=== PATIENT | male | born 1980 | race American Indian/Alaskan Native ===

== ENCOUNTER 2017-11-19 11:35 | Emergency (ER) | payer MEDICAID ==
[2017-11-19 11:43] VITALS: BP 144/86
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
[2017-11-19 12:31] LABS: CHLORIDE,CL 96 mmol/L (101-111); SODIUM,NA 134 mmol/L (135-145)
== END 2017-11-19 13:54 ==
LOC: DL.ED 11:35
DX: F10.20 Alcohol dependence, uncomplicated (principal); G40.909 Epilepsy, unspecified, not intractable, without status epilepticus; F17.210 Nicotine dependence, cigarettes, uncomplicated; Z88.0 Allergy status to penicillin
CPT/HCPCS: 36415; 80053; 80305; 81001; 85025; 99283; G0480

== ENCOUNTER 2019-04-21 03:41 | Emergency (ER) | payer MEDICAID ==
[~2019-04-21 03:41] MED LIST: GI Cocktail Oral Solution 30 ML PO ONE
[2019-04-21 03:42] VITALS: BP 129/95; PULSE 73
--- NOTE | 2019-04-21 03:42 | EDM.PDOC ---
ED HPI GENERAL MEDICAL PROBLEM - General Chief Complaint: Chest Pain Stated Complaint: AMBULANCE Time Seen by Provider: 04/21/19 03:40 Source of Information: Reports: Patient History Limitations: Reports: No Limitations - History of Present Illness INITIAL COMMENTS - FREE TEXT/NARRATIVE: woke up with mid chest pain pointing to sternum to mid abd. ate gomez bed for dinner. Upper Abdomen Pain Score (Numeric/FACES): 8 - Related Data Allergies Allergy/AdvReac Type Severity Reaction Status Date / Time Penicillins Allergy Cannot Verified 04/21/19 03:56 Remember Home Meds: Home Meds . [No Known Home Meds] 08/12/15 [History] Past Medical History - Past Health History Medical/Surgical History: Denies Medical/Surgical History Gastrointestinal History: Reports: None Musculoskeletal History: Reports: Other (See Below) Other Musculoskeletal History: cerbral palsy Neurological History: Reports: Seizure Endocrine/Metabolic History: Reports: [place]'s Disease - Past Surgical History GI Surgical History: Reports: Appendectomy Neurological Surgical History: Reports: None Musculoskeletal Surgical History: Reports: Other (See Below) Social & Family History - Family History Family Medical History: Noncontributory - Caffeine Use Caffeine Use: Reports: Coffee, Soda ED ROS GENERAL - Review of Systems Review Of Systems: Comprehensive ROS is negative, except as noted in HPI. ED EXAM, GENERAL - Physical Exam Exam: See Below Exam Limited By: No Limitations General Appearance: Alert, WD/WN, Anxious, Mild Distress Ears: Hearing Grossly Normal Throat/Mouth: Normal Voice, No Airway Compromise Head: Atraumatic Neck: Non-Tender, Full Range of Motion Respiratory/Chest: No Respiratory Distress Cardiovascular: Regular Rate, Rhythm GI/Abdominal: Tender, Other (epiG splinting). No: Distended, Guarding, Rigid, Rebound Neurological: Alert, Oriented, Normal Cognition, No Motor/Sensory Deficits Psychiatric: Anxious Skin Exam: Warm, Dry, Normal Color Lymphatic: No Adenopathy Course - Vital Signs Last Recorded V/S: Last Vital Signs Temp 36.1 C 04/21/19 03:33 Pulse 73 04/21/19 03:33 Resp 13 04/21/19 03:33 BP 129/95 H 04/21/19 03:33 Pulse Ox 100 04/21/19 03:33 - Orders/Labs/Meds Orders: Active Orders 24 hr Category Date Time Status EKG 12 Lead [EKG Documentation Completion] [RC] STAT Care 04/21/19 03:39 Active Labs: Laboratory Tests 04/21/19 04/21/19 Range/Units 03:49 03:49 WBC 9.7 (5.0-10.0) 10^3/uL RBC 5.21 (4.6-6.2) 10^6/uL Hgb 17.3 (14.0-18.0) g/dL Hct 51.9 (40.0-54.0) % MCV 99.6 (80-100) fL MCH 33.2 (27.0-34.0) pg MCHC 33.3 (33.0-35.0) g/dL Plt Count 260 D (150-450) 10^3/uL Neut % (Auto) 59.1 (42.2-75.2) % Lymph % (Auto) 30.6 (20.5-50.1) % [place] % (Auto) 5.6 (2-8) % Eos % (Auto) 4.3 H (1.0-3.0) % Baso % (Auto) 0.4 (0.0-1.0) % Sodium 137 (135-145) mmol/L Potassium 3.8 (3.6-5.0) mmol/L Chloride 103 (101-111) mmol/L Carbon Dioxide 27.0 (21.0-31.0) mmol/L Anion Gap 10.8 BUN 12 (7-18) mg/dL Creatinine 0.8 (0.6-1.3) mg/dL Est Cr Clr Drug Dosing 134.72 mL/min Estimated GFR (MDRD) > 60 BUN/Creatinine Ratio 15.00 Glucose 118 H (74-105) mg/dL Calcium 8.9 (8.4-10.2) mg/dl Total Bilirubin 0.9 (0.2-1.0) mg/dL AST 60 H (10-42) IU/L ALT 25 (10-60) IU/L Alkaline Phosphatase 74 (42-121) IU/L Troponin I < 0.02 (0.00-0.02) ng/ml Total Protein 7.6 (6.7-8.2) g/dl Albumin 4.0 (3.2-5.5) g/dl Globulin 3.6 Albumin/Globulin Ratio 1.11 Meds: Medications Discontinued Medications Generic Name Dose Route Start Last Admin Trade Name Beto PRN Reason Stop Dose Admin Al Hydroxide/Mg Hydroxide 30 ml 04/21/19 03:38 04/21/19 03:48 Gi Cocktail PO 04/21/19 03:39 30 ml ONETIME ONE Administration - Re-Assessments/Exams Free Text/Narrative Re-Assessment/Exam: 04/21/19 03:56 s/p GI cocktail = much better now. 04/21/19 04:34 results discussed with pt who remains pain free. Departure - Departure Time of Disposition: 04:34 Disposition: Home, Self-Care 01 Condition: Good Clinical Impression: Gastroesophageal reflux disease Qualifiers: Esophagitis presence: with esophagitis Qualified Code(s): K21.0 - Gastro- esophageal reflux disease with esophagitis Instructions: Food Choices for Gastroesophageal Reflux Disease, Adult Forms: ED Department Discharge Additional Instructions: 1) avoid spicy foods 2) follow up at clinic Sepsis Event Note - Focused Exam Vital Signs: Vital Signs Temp Pulse Resp BP Pulse Ox 04/21/19 03:33 36.1 C 73 13 129/95 H 100 Date Exam was Performed: 04/21/19 Time Exam was Performed: 04:34 - My Orders Last 24 Hours: My Active Orders 04/21/19 03:39 EKG 12 Lead [EKG Documentation Completion] [RC] STAT - Assessment/Plan Last 24 Hours: My Active Orders 04/21/19 03:39 EKG 12 Lead [EKG Documentation Completion] [RC] STAT
[2019-04-21 04:15] LABS: ANION GAP 10.8; CHLORIDE,CL 103 mmol/L (101-111); SODIUM,NA 137 mmol/L (135-145)
== END 2019-04-21 04:45 | disposition home or self-care (01) ==
LOC: DL.ED 03:41
DX: K21.0 Gastro-esophageal reflux disease with esophagitis (principal); Z88.0 Allergy status to penicillin
CPT/HCPCS: 36415; 80053; 84484; 85025; 93005; 99285; A9270

== ENCOUNTER 2019-06-02 17:58 | Emergency (ER) | payer MEDICAID ==
[2019-06-02] MEDS ORDERED: Iopamidol 612 MG/ML 100 ML Bottle IVPUSH ONE (18:01)
[2019-06-02] MEDS ORDERED: Sodium Chloride 0.9% 10 ML Syringe FLUSH PRN (18:01)
[2019-06-02] MEDS ORDERED: Diphtheria,Pertussis(Acell),Tetanus Vaccine 0.5 ML SDV IM ONE (18:05)
[2019-06-02 18:21] LABS: ANION GAP 15.4; CHLORIDE,CL 101 mmol/L (101-111); SODIUM,NA 140 mmol/L (135-145)
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
[2019-06-02 18:24] LABS: PTT,PARTIAL THROMBOPLSTIN TIME 26.6 SEC (22.0-34.0)
[2019-06-02] MEDS ORDERED: Lactated Ringers 1,000 ML IV ONE (18:31)
[2019-06-02] MEDS ORDERED: Ondansetron 4 MG/2 ML SDV IV ONE (18:31)
[2019-06-02] MEDS ORDERED: fentaNYL 100 MCG/2 ML SDV IVPUSH ONE (18:31)
[2019-06-02] MEDS ORDERED: MVI, Adult with Vitamin K 10 ML, Folic Acid 1 MG, Thiamine 100 MG in Lactated Ringers 1... IV ONE ×4 (20:21)
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
== END 2019-06-02 21:19 | disposition home or self-care (01) ==
LOC: DL.ED 17:58
DX: S01.112A Laceration without foreign body of left eyelid and periocular area, initial encounter (principal); S05.12XA Contusion of eyeball and orbital tissues, left eye, initial encounter; F10.929 Alcohol use, unspecified with intoxication, unspecified; Y90.8 Blood alcohol level of 240 mg/100 ml or more; Z88.0 Allergy status to penicillin; Z23 Encounter for immunization; X99.1XXA Assault by knife, initial encounter
CPT/HCPCS: 36415; 70450; 70486; 72125; 80053; 80305; 80307; 81003; 85025; 85610; 85730; 90471; 90715; 96361; 96365; 96375; 99284; J2405; J3010; J3411; J7120; 70487; J3490

== ENCOUNTER 2021-02-23 16:26 | Inpatient (IN) | payer MEDICAID ==
--- NOTE | 2021-02-23 15:36 | EDM.PDOC ---
ED HPI GENERAL MEDICAL PROBLEM - General Chief Complaint: Skin Complaint Stated Complaint: AMBULANCE Time Seen by Provider: 02/23/21 15:15 Source of Information: Reports: Patient History Limitations: Reports: No Limitations - History of Present Illness INITIAL COMMENTS - FREE TEXT/NARRATIVE: This 40 yo male patient was brought to the ED by [facility] due to an infection in his left 2nd distal finger and left lower extremity. The patient believes the redness and swelling started at least 2 days ago and has been getting worse. The patient has not had either area evaluated and has not had any antibiotics. Onset: Unknown/Unsure Duration: Day(s):, Constant Location: Reports: Upper Extremity, Left, Lower Extremity, Left Quality: Reports: Ache, Dull Severity: Moderate Improves with: Reports: None Worsens with: Reports: None Context: Reports: Other Associated Symptoms: Reports: No Other Symptoms Right Leg Pain Score (Numeric/FACES): 10 - Related Data Allergies Allergy/AdvReac Type Severity Reaction Status Date / Time Penicillins Allergy Cannot Verified 02/23/21 15:11 Remember Home Meds: Home Meds . 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 Hematologic History: Reports: None Immunologic History: Reports: None Oncologic (Cancer) History: Reports: None Dermatologic History: Reports: None - Infectious Disease History Infectious Disease History: Reports: Chicken Pox - Past Surgical History Head Surgeries/Procedures: Reports: None HEENT Surgical History: Reports: None Cardiovascular Surgical History: Reports: None Respiratory Surgical History: Reports: None GI Surgical History: Reports: Appendectomy Male Surgical History: Reports: None Endocrine Surgical History: Reports: None Neurological Surgical History: Reports: None Musculoskeletal Surgical History: Reports: Other (See Below) Other Musculoskeletal Surgeries/Procedures:: RIGHT arm surgery R/T Cerebral Palsey Oncologic Surgical History: Reports: None Social & Family History - Family History Family Medical History: No Pertinent Family History - Tobacco Use Tobacco Use Status *Q: Current Every Day Tobacco User Years of Tobacco use: 24 Packs/Tins Daily: 1 - Caffeine Use Caffeine Use: Reports: Soda - Living Situation & Occupation Living situation: Reports: Occupation: Unemployed ED ROS GENERAL - Review of Systems Review Of Systems: Comprehensive ROS is negative, except as noted in HPI. ED EXAM, SKIN/RASH Exam: See Below Exam Limited By: No Limitations General Appearance: Alert, WD/WN, Moderate Distress Eye Exam: Bilateral Eye: EOMI, Normal Inspection, PERRL Ears: Normal External Exam, Normal Canal, Hearing Grossly Normal, Normal TMs Nose: Normal Inspection, Normal Mucosa, No Blood Throat/Mouth: Normal Inspection, Normal Lips, Normal Teeth, Normal Gums, Normal Oropharynx, Normal Voice, No Airway Compromise Head: Atraumatic, Normocephalic Neck: Normal Inspection, Supple, Non-Tender, Full Range of Motion Respiratory/Chest: No Respiratory Distress, Lungs Clear, Normal Breath Sounds, No Accessory Muscle Use, Chest Non-Tender Cardiovascular: Normal Peripheral Pulses, Regular Rate, Rhythm, No Edema, No Gallop, No JVD, No Murmur, No Rub GI/Abdominal: Normal Bowel Sounds, Soft, Non-Tender, No Organomegaly, No Distention, No Abnormal Bruit, No Mass (Male) Exam: Deferred Rectal (Males) Exam: Deferred Back Exam: Normal Inspection, Full Range of Motion, NT Extremities: Arm Pain (left distal 2nd finger erythematous), Leg Pain (erythematous) Neurological: Alert, Oriented, CN II-XII Intact, Normal Cognition, Normal Gait, Normal Reflexes, No Motor/Sensory Deficits Psychiatric: Normal Affect, Normal Mood Location, Skin: Upper Extremity, Left, Lower Extremity, Left Characteristics: Erythematous Associated features: Warmth, Tenderness, Swelling, Inflammation Lymphatic: No Adenopathy Course - Vital Signs Last Recorded V/S: Last Vital Signs Temp 99.3 F 02/23/21 14:55 Pulse 88 02/23/21 14:55 Resp 14 02/23/21 14:55 BP 133/89 02/23/21 14:55 Pulse Ox 97 02/23/21 14:55 - Orders/Labs/Meds Orders: Active Orders 24 hr Category Date Time Status Admission Diagnosis [ADT] Urgent ADT 02/23/21 16:50 Ordered Admission Status [Patient Status] [ADT] Urgent ADT 02/23/21 16:50 Ordered CORONAVIRUS COVID-19 RAPID [MOLEC] Stat Lab 02/23/21 16:48 Received CULTURE BLOOD [BC] Stat Lab 02/23/21 15:28 Ordered CULTURE BLOOD [BC] Stat Lab 02/23/21 15:28 Ordered Vancomycin 1.25 gm Med 02/23/21 16:00 Ordered Sodium Chloride 0.9% [Normal Saline AdvBag] 250 ml IV ONETIME Blood Culture x2 Reflex Set [OM.PC] Stat Oth 02/23/21 15:28 Ordered Medication Orders Vancomycin HCl 1.25 gm/ Sodium (Chloride) 250 mls @ 167 mls/hr IV ONETIME ONE Stop: 02/23/21 17:29 Last Admin: 02/23/21 16:16 Dose: 167 mls/hr Documented by: FAVIAN Labs: Laboratory Tests 02/23/21 02/23/21 02/23/21 Range/Units 15:42 15:42 15:42 WBC 10.3 H (5.0-10.0) 10^3/uL RBC 4.65 (4.6-6.2) 10^6/uL Hgb 15.6 D (14.0-18.0) g/dL Hct 46.7 (40.0-54.0) % MCV 100.4 H (80-100) fL MCH 33.5 (27.0-34.0) pg MCHC 33.4 (33.0-35.0) g/dL Plt Count 167 D (150-450) 10^3/uL Neut % (Auto) 84.2 H (42.2-75.2) % Lymph % (Auto) 5.8 L (20.5-50.1) % [place] % (Auto) 9.5 H (2-8) % Eos % (Auto) 0.3 L (1.0-3.0) % Baso % (Auto) 0.2 (0.0-1.0) % Sodium 133 L (136-145) mmol/L Potassium 3.4 L (3.5-5.1) mmol/L Chloride 96 L (98-107) mmol/L Carbon Dioxide 27 (21-32) mmol/L Anion Gap 13.4 H (7-13) mEq/L BUN 10 (7-18) mg/dL Creatinine 0.81 (0.70-1.30) mg/dL Est Cr Clr Drug Dosing 114.94 mL/min Estimated GFR (MDRD) > 60 BUN/Creatinine Ratio 12.3 (No establ ref range) Glucose 100 H (70-99) mg/dL Lactic Acid 1.6 (0.4-2.0) mmol/L Calcium 9.3 (8.5-10.1) mg/dL Total Bilirubin 1.6 H (0.2-1.0) mg/dL AST 18 (15-37) U/L ALT 29 (16-63) U/L Alkaline Phosphatase 86 (46-116) U/L Total Protein 8.1 (6.4-8.2) g/dL Albumin 3.0 L (3.4-5.0) g/dL Globulin 5.1 Albumin/Globulin Ratio 0.59 Meds: Medications Generic Name Dose Route Start Last Admin Trade Name Freq PRN Reason Stop Dose Admin Vancomycin HCl 1.25 gm/ Sodium 250 mls @ 167 mls/hr 02/23/21 16:00 02/23/21 16:16 Chloride IV 02/23/21 17:29 167 mls/hr ONETIME ONE Administration Departure - Departure Time of Disposition: 16:55 Disposition: Admitted As Inpatient 64 Condition: Fair Clinical Impression: Cellulitis Qualifiers: Site of cellulitis: other site Qualified Code(s): L03.818 - Cellulitis of other sites - Discharge Information *PRESCRIPTION DRUG MONITORING PROGRAM REVIEWED*: Not Applicable *COPY OF PRESCRIPTION DRUG MONITORING REPORT IN PATIENT [place]: Not Applicable Instructions: Cellulitis, Adult, Yder-le-Vrlh Forms: ED Department Discharge Care Plan Goals: Discussed the patient's history, examination, x-ray, lab results and treatments with Dr. Tarango. Dr. Tarango accepted the patient for continued evaluation and management as an inpatient at [facility] in [place]. Sepsis Event Note (ED) - Focused Exam Vital Signs: Vital Signs Temp Pulse Resp BP Pulse Ox 02/23/21 14:55 99.3 F 88 14 133/89 97 - My Orders Last 24 Hours: My Active Orders 02/23/21 15:28 CULTURE BLOOD [BC] Stat CULTURE BLOOD [BC] Stat Blood Culture x2 Reflex Set [OM.PC] Stat 02/23/21 16:00 Vancomycin 1.25 gm Sodium Chloride 0.9% [Normal Saline AdvBag] 250 ml IV ONETIME 02/23/21 16:48 CORONAVIRUS COVID-19 RAPID [MOLEC] Stat 02/23/21 16:50 Admission Diagnosis [ADT] Urgent Admission Status [Patient Status] [ADT] Urgent - Assessment/Plan Last 24 Hours: My Active Orders 02/23/21 15:28 CULTURE BLOOD [BC] Stat CULTURE BLOOD [BC] Stat Blood Culture x2 Reflex Set [OM.PC] Stat 02/23/21 16:00 Vancomycin 1.25 gm Sodium Chloride 0.9% [Normal Saline AdvBag] 250 ml IV ONETIME 02/23/21 16:48 CORONAVIRUS COVID-19 RAPID [MOLEC] Stat 02/23/21 16:50 Admission Diagnosis [ADT] Urgent Admission Status [Patient Status] [ADT] Urgent
[2021-02-23 16:14] LABS: ANION GAP 13.4 mEq/L (7-13); CHLORIDE,CL 96 mmol/L (98-107); SODIUM,NA 133 mmol/L (136-145)
--- NOTE | 2021-02-23 16:19 | CR ---
PROCEDURE INFORMATION: Exam: XR Left Finger(s) Exam date and time: 02/23/2021 3:34 PM Age: 40 years old Clinical indication: Other: Left 2nd distal finger swelling and pain TECHNIQUE: Imaging protocol: XR Left fingers. Views: Minimum 2 views. COMPARISON: No relevant prior studies available. FINDINGS: Bones/joints: Comminuted fracture/possible erosive changes at the tuft of the index finger distal phalanx. No other acutely displaced fractures are identified. There is no evidence of joint dislocation. Soft tissues: Swelling at the tip of the index finger with underlying nail injury. Lacerations are also present. IMPRESSION: 1. Fracture at the tuft of the index finger distal phalanx. In the absence of acute trauma, findings could also be related to destructive/erosive osseous changes in which osteomyelitis would fall within the differential diagnosis. 2. Swelling and lacerations at the tip of the index finger.
[2021-02-23] MEDS ORDERED: Ibuprofen 400 MG Tab PO PRN (18:00)
[2021-02-23] MEDS ORDERED: Acetaminophen/HYDROcodone 325-10 MG Tab PO PRN (18:00)
[2021-02-23] MEDS ORDERED: Docusate Sodium 100 MG Cap PO PRN (18:00)
[2021-02-23] MEDS ORDERED: Levofloxacin 500 MG Tab PO SCH (18:00)
[2021-02-23] MEDS ORDERED: Sodium Chloride 0.9% 10 ML Syringe FLUSH PRN (18:00)
[2021-02-23] MEDS ORDERED: Ondansetron 4 MG/2 ML SDV IVPUSH PRN (18:00)
[2021-02-23] MEDS ORDERED: Potassium Chloride 10 MEQ Tab.ER PO ONE ×2 (18:03→20:30)
--- NOTE | 2021-02-23 18:07 | PCM.HP ---
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 Hematologic History: Reports: None Immunologic History: Reports: None Oncologic (Cancer) History: Reports: None Dermatologic History: Reports: None - Infectious Disease History Infectious Disease History: Reports: Chicken Pox - Past Surgical History Head Surgeries/Procedures: Reports: None HEENT Surgical History: Reports: None Cardiovascular Surgical History: Reports: None Respiratory Surgical History: Reports: None GI Surgical History: Reports: Appendectomy Male Surgical History: Reports: None Endocrine Surgical History: Reports: None Neurological Surgical History: Reports: None Musculoskeletal Surgical History: Reports: Other (See Below) Other Musculoskeletal Surgeries/Procedures:: RIGHT arm surgery R/T Cerebral Palsey Oncologic Surgical History: Reports: None Social & Family History - Family History Family Medical History: No Pertinent Family History - Tobacco Use Tobacco Use Status *Q: Current Every Day Tobacco User Years of Tobacco use: 24 Packs/Tins Daily: 1 - Caffeine Use Caffeine Use: Reports: Coffee, Soda - Alcohol Use Days Per Week of Alcohol Use: 2 - Living Situation & Occupation Living situation: Reports: Occupation: Unemployed H&P Review of Systems - Review of Systems: Review Of Systems: See Below General: Reports: Fever (subjective), Chills, Malaise Pulmonary: Denies: Shortness of Breath Cardiovascular: Denies: Chest Pain Gastrointestinal: Denies: Abdominal Pain Genitourinary: Denies: Dysuria Skin: Reports: Other (left index finger swelling, cut; left barger redness) Psychiatric: Denies: Confusion Exam - Exam Exam: See Below - Vital Signs Vital Signs: Last Vital Signs Temp 99.3 F 02/23/21 14:55 Pulse 88 02/23/21 14:55 Resp 14 02/23/21 14:55 BP 133/89 02/23/21 14:55 Pulse Ox 97 02/23/21 14:55 Weight: 180 lb - Exam Quality Assessment: No: Supplemental Oxygen General: Alert, Oriented Neck: Supple Lungs: Clear to Auscultation, Normal Respiratory Effort Cardiovascular: Regular Rate, Regular Rhythm GI/Abdominal Exam: Normal Bowel Sounds, Soft, Non-Tender Extremities: Other (left barger with erythema, swelling, redness; left index finger with deep cut, swelling) Neuro Extensive - Mental Status: Alert, Oriented x3 Neuro Extensive - Motor, Sensory, Reflexes: Other (r. UE paralysis) - Patient Data Lab Results Last 24 hrs: Laboratory Results - last 24 hr 02/23/21 02/23/21 02/23/21 Range/Units 15:42 15:42 15:42 WBC 10.3 H (5.0-10.0) 10^3/uL RBC 4.65 (4.6-6.2) 10^6/uL Hgb 15.6 D (14.0-18.0) g/dL Hct 46.7 (40.0-54.0) % MCV 100.4 H (80-100) fL MCH 33.5 (27.0-34.0) pg MCHC 33.4 (33.0-35.0) g/dL Plt Count 167 D (150-450) 10^3/uL Neut % (Auto) 84.2 H (42.2-75.2) % Lymph % (Auto) 5.8 L (20.5-50.1) % [place] % (Auto) 9.5 H (2-8) % Eos % (Auto) 0.3 L (1.0-3.0) % Baso % (Auto) 0.2 (0.0-1.0) % Sodium 133 L (136-145) mmol/L Potassium 3.4 L (3.5-5.1) mmol/L Chloride 96 L (98-107) mmol/L Carbon Dioxide 27 (21-32) mmol/L Anion Gap 13.4 H (7-13) mEq/L BUN 10 (7-18) mg/dL Creatinine 0.81 (0.70-1.30) mg/dL Est Cr Clr Drug Dosing 114.94 mL/min Estimated GFR (MDRD) > 60 BUN/Creatinine Ratio 12.3 (No establ ref range) Glucose 100 H (70-99) mg/dL Lactic Acid 1.6 (0.4-2.0) mmol/L Calcium 9.3 (8.5-10.1) mg/dL Total Bilirubin 1.6 H (0.2-1.0) mg/dL AST 18 (15-37) U/L ALT 29 (16-63) U/L Alkaline Phosphatase 86 (46-116) U/L Total Protein 8.1 (6.4-8.2) g/dL Albumin 3.0 L (3.4-5.0) g/dL Globulin 5.1 Albumin/Globulin Ratio 0.59 SARS CoV-2 RNA Rapid ANDRES (NEGATIVE) 02/23/21 Range/Units 16:48 WBC (5.0-10.0) 10^3/uL RBC (4.6-6.2) 10^6/uL Hgb (14.0-18.0) g/dL Hct (40.0-54.0) % MCV (80-100) fL MCH (27.0-34.0) pg MCHC (33.0-35.0) g/dL Plt Count (150-450) 10^3/uL Neut % (Auto) (42.2-75.2) % Lymph % (Auto) (20.5-50.1) % [place] % (Auto) (2-8) % Eos % (Auto) (1.0-3.0) % Baso % (Auto) (0.0-1.0) % Sodium (136-145) mmol/L Potassium (3.5-5.1) mmol/L Chloride (98-107) mmol/L Carbon Dioxide (21-32) mmol/L Anion Gap (7-13) mEq/L BUN (7-18) mg/dL Creatinine (0.70-1.30) mg/dL Est Cr Clr Drug Dosing mL/min Estimated GFR (MDRD) BUN/Creatinine Ratio (No establ ref range) Glucose (70-99) mg/dL Lactic Acid (0.4-2.0) mmol/L Calcium (8.5-10.1) mg/dL Total Bilirubin (0.2-1.0) mg/dL AST (15-37) U/L ALT (16-63) U/L Alkaline Phosphatase (46-116) U/L Total Protein (6.4-8.2) g/dL Albumin (3.4-5.0) g/dL Globulin Albumin/Globulin Ratio SARS CoV-2 RNA Rapid ANDRES Negative (NEGATIVE) Result Diagrams: 02/23/21 15:42 02/23/21 15:42 - Problem List (1) Cellulitis SNOMED Code(s): 499031047 ICD Code: L03.90 - CELLULITIS, UNSPECIFIED Status: Acute Current Visit: No Qualifiers: Site of cellulitis: other site Qualified Code(s): L03.818 - Cellulitis of other sites Problem List Initiated/Reviewed/Updated: Yes Orders Last 24hrs: Active Orders 24 hr Category Date Time Status Admission Diagnosis [ADT] Urgent ADT 02/23/21 16:50 Ordered Admission Status [Patient Status] [ADT] Urgent ADT 02/23/21 16:50 Active Oxygen Therapy [RC] PRN Care 02/23/21 18:00 Ordered Peripheral IV Care [RC] . DIRECTED Care 02/23/21 18:01 Ordered Up With Assistance [RC] ASDIRECTED Care 02/23/21 18:00 Ordered VTE/DVT Education [RC] PER UNIT ROUTINE Care 02/23/21 18:00 Ordered Vital Signs [RC] Q4H Care 02/23/21 18:00 Ordered Regular Diet [DIET] Diet 02/23/21 Breakfast Ordered BASIC METABOLIC PANEL,BMP [CHEM] AM Lab 02/24/21 05:11 Ordered CBC WITH AUTO DIFF [HEME] AM Lab 02/24/21 05:11 Ordered CULTURE BLOOD [BC] Stat Lab 02/23/21 15:42 Received CULTURE BLOOD [BC] Stat Lab 02/23/21 15:47 Received CULTURE WOUND + SMEAR [RM] Routine Lab 02/23/21 17:58 Ordered Acetaminophen [TylenoL] Med 02/23/21 18:00 Ordered 650 mg PO Q4H PRN Acetaminophen/HYDROcodone [[place] 325-10 MG] Med 02/23/21 18:00 Ordered 1 tab PO Q4H PRN Docusate Sodium [Colace] Med 02/23/21 18:00 Ordered 100 mg PO BID PRN Heparin Sodium Med 02/23/21 22:00 Ordered 5,000 units SUBCUT Q8HR Ibuprofen [Motrin] Med 02/23/21 18:00 Ordered 400 mg PO Q6H PRN Ondansetron [Zofran] Med 02/23/21 18:00 Ordered 4 mg IVPUSH Q6H PRN Pharmacy to Dose - Vancomycin Med 02/23/21 18:00 Ordered 1 dose .XX ASDIRECTED Potassium Chloride [Klor-Con 10] Med 02/23/21 18:03 Once 20 meq PO ONETIME ONE Sodium Chloride 0.9% [Saline Flush] Med 02/23/21 18:00 Ordered 10 ml FLUSH ASDIRECTED PRN Temazepam [Restoril] Med 02/23/21 18:00 Ordered 15 mg PO BEDTIME PRN levoFLOXacin [Levaquin] Med 02/23/21 18:00 Ordered 750 mg PO Q24H Blood Culture x2 Reflex Set [OM.PC] Stat Oth 02/23/21 15:28 Ordered Peripheral IV Insertion Adult [OM.PC] Routine Oth 02/23/21 18:00 Ordered Saline Lock Insert [OM.PC] Routine Oth 02/23/21 18:00 Ordered Resuscitation Status Routine Resus Stat 02/23/21 18:00 Ordered Medication Orders Acetaminophen (Acetaminophen 325 Mg Tab) 650 mg PO Q4H PRN PRN Reason: Pain (Mild 1-3)/fever Hydrocodone Bitart/Acetaminophen (Acetaminophen/Hydrocodone 325-10 Mg Tab) 1 tab PO Q4H PRN PRN Reason: Pain (severe 7-10) Docusate Sodium (Docusate Sodium 100 Mg Cap) 100 mg PO BID PRN PRN Reason: Constipation Heparin Sodium (Porcine) (Heparin Sodium 5,000 Units/Ml Vial) 5,000 units SUBCUT Q8HR PAMELA Ibuprofen (Ibuprofen 400 Mg Tab) 400 mg PO Q6H PRN PRN Reason: Pain (moderate 4-6) Levofloxacin (Levofloxacin 500 Mg Tab) 750 mg PO Q24H PAMELA Ondansetron HCl (Ondansetron 4 Mg/2 Ml Sdv) 4 mg IVPUSH Q6H PRN PRN Reason: Nausea/Vomiting Potassium Chloride (Potassium Chloride 10 Meq Tab.Er) 20 meq PO ONETIME ONE Stop: 02/23/21 18:04 Sodium Chloride (Sodium Chloride 0.9% 10 Ml Syringe) 10 ml FLUSH ASDIRECTED PRN PRN Reason: Keep Vein Open Temazepam (Temazepam 15 Mg Cap) 15 mg PO BEDTIME PRN PRN Reason: Sleep Vancomycin HCl (Pharmacy To Dose - Vancomycin) 1 dose .XX ASDIRECTED [facility] Assessment/Plan Comment:: 40 yo M with no chronic medical history 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
[2021-02-23] MEDS ORDERED: VANCOmycin 1.5 GM/300 ML 300 ML IV SCH (20:00)
[2021-02-23] MEDS: Levofloxacin 500 MG Tab PO SCH (20:39)
[2021-02-23] MEDS: Heparin Sodium 5,000 Units/ML Vial SUBCUT SCH (22:03)
[2021-02-23] MEDS: VANCOmycin 1.5 GM/300 ML 300 ML IV SCH (22:04)
[2021-02-24] MEDS: Acetaminophen 325 MG Tab PO PRN ×2 (00:12→21:40)
[2021-02-24] MEDS: VANCOmycin 1.5 GM/300 ML 300 ML IV SCH ×3 (05:46→22:17)
[2021-02-24] MEDS: Heparin Sodium 5,000 Units/ML Vial SUBCUT SCH ×3 (05:52→21:38)
[2021-02-24 07:05] LABS: ANION GAP 13.7 mEq/L (7-13); CHLORIDE,CL 99 mmol/L (98-107); SODIUM,NA 133 mmol/L (136-145)
[2021-02-24] MEDS ORDERED: Iopamidol 612 MG/ML 100 ML Bottle IVPUSH ONE (13:00)
--- NOTE | 2021-02-24 14:28 | CT ---
PROCEDURE INFORMATION: Exam: CT Left Upper Extremity With Contrast Exam date and time: 02/24/2021 1:42 PM Age: 40 years old Clinical indication: Other: Acute cellulitis of left index finger, chronic wound left dorsal wrist; Additional info: ? Osteomyelitis of left wrist and index finger TECHNIQUE: Imaging protocol: CT of the Left upper extremity with intravenous contrast was performed. Radiation optimization: All CT scans at this facility use at least one of these dose optimization techniques: automated exposure control; mA and/or kV adjustment per patient size (includes targeted exams where dose is matched to clinical indication); or iterative reconstruction. Contrast material: [id number]; Contrast volume: 100 ml; Contrast route: INTRAVENOUS (IV); COMPARISON: CR Fingers Second Digit Lt F1 02/23/2021 3:34 PM FINDINGS: Bones/joints: Comminuted tuft fracture of the distal tuft of the index finger with resorptive changes Soft tissues: Soft tissue swelling and soft tissue gas about the distal tip of the index finger. Focal laceration on the radial aspect of the distal index finger. IMPRESSION: Resorptive changes about the comminuted tuft fracture of the left index finger with associated cellulitis and the pocket of soft tissue gas. Findings suspicious for infection of the soft tissues. The findings in the bone could be due to either reactive change or infection.
[2021-02-24] MEDS: Levofloxacin 500 MG Tab PO SCH (21:39)
[2021-02-24 22:39] LABS: AMPHETAMINES,URINE NEGATIVE (NEGATIVE); BARBITURATES,URINE NEGATIVE (NEGATIVE); BENZODIAZEPINE,URINE NEGATIVE (NEGATIVE); MDMA (ECSTASY), URINE NEGATIVE (NEGATIVE); METHADONE,URINE NEGATIVE (NEGATIVE); METHAMPHETAMINES,URINE NEGATIVE (NEGATIVE); OPIATES,URINE NEGATIVE (NEGATIVE); OXYCODONE,URINE NEGATIVE (NEGATIVE); PHENCYCLIDINE,URINE NEGATIVE (NEGATIVE); TCA,URINE NEGATIVE (NEGATIVE)
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
[2021-02-25] MEDS: Temazepam 15 MG Cap PO PRN (01:39)
[2021-02-25] MEDS: Heparin Sodium 5,000 Units/ML Vial SUBCUT SCH ×3 (05:08→21:31)
[2021-02-25] MEDS: Acetaminophen 325 MG Tab PO PRN ×2 (06:19→19:58)
[2021-02-25 06:41] LABS: ANION GAP 13.7 mEq/L (7-13); CHLORIDE,CL 101 mmol/L (98-107); SODIUM,NA 136 mmol/L (136-145)
[2021-02-25] MEDS ORDERED: Clindamycin in 0.9 % Sod Chlor 600 MG in Premix Bag 1 BAG IV SCH ×2 (10:00)
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
[2021-02-25] MEDS: VANCOmycin 1.5 GM/300 ML 300 ML IV SCH ×2 (15:06→21:36)
[2021-02-26] MEDS: Temazepam 15 MG Cap PO PRN ×2 (00:12→20:20)
[2021-02-26] MEDS: Heparin Sodium 5,000 Units/ML Vial SUBCUT SCH ×3 (05:28→21:25)
[2021-02-26] MEDS: VANCOmycin 1.5 GM/300 ML 300 ML IV SCH ×3 (05:28→23:35)
[2021-02-26 07:30] LABS: ANION GAP 12.7 mEq/L (7-13); CHLORIDE,CL 102 mmol/L (98-107); SODIUM,NA 137 mmol/L (136-145)
[2021-02-26] MEDS: Bacitracin/Neomycin/Polymyxin B Oint 28.4 GM Tube TOP SCH ×2 (11:11→20:17)
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
[2021-02-26] MEDS: Acetaminophen 325 MG Tab PO PRN (20:21)
[2021-02-27] MEDS: Heparin Sodium 5,000 Units/ML Vial SUBCUT SCH (06:00)
[2021-02-27] MEDS: VANCOmycin 1.5 GM/300 ML 300 ML IV SCH (06:00)
[2021-02-27 06:24] LABS: ANION GAP 11.7 mEq/L (7-13); CHLORIDE,CL 102 mmol/L (98-107); SODIUM,NA 135 mmol/L (136-145)
[2021-02-27 08:02] VITALS: BP 110/72; PULSE 85
--- NOTE | 2021-02-27 09:39 | PCM.DCSUM1 ---
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 the top of his finger was cut and crushed by a falling pane of glass when assisting with installing a new window. He did not receive medical care for it until his entire finger became 10/10 painful and very swollen. At the time of presentation he also had Left lower leg redness that had just begun but was spreading rapidly, proximally up his left leg. He was admitted to the hospital for cellulitis treatment, was started on IV vancomycin. Hand surgeon was contacted at OSH but no return call was made. Pt was monitored until he had significant improvement in finger and lower extremity cellulitis. He will need to continue on PO abx. He does have an allergy to PCN so was started on doxycycline at discharge. he will need to follow closely with his PCP and will need to see a hand surgeon as an outpatient as there is nail bed involvement and a distal phalanx crush injury noted on imaging. Pt was up to date on tetanus with last shot 06/2019. He voiced understanding of the plan of care and had no further questions or concerns at the time of discharge. born with r. UE paralysis - Patient Instructions Diet: Usual Diet as Tolerated Activity: As Tolerated Driving: May Drive Today Showering/Bathing: May Shower Wound/Incision Care: Change Dressing Daily (vaseline gauze lightly covered with curlex to finger. left wrist stage 1 ulcer with bacitracin and light gauze dressing. change all daily. left lateral malleolus ulcer open to air. ) - Discharge Plan *PRESCRIPTION DRUG MONITORING PROGRAM REVIEWED*: No *COPY OF PRESCRIPTION DRUG MONITORING REPORT IN PATIENT [place]: No Prescriptions/Med Rec: Doxycycline [Vibramycin] 100 mg PO DAILY 10 Days #20 cap Home Medications: Home Meds Doxycycline [Vibramycin] 100 mg PO DAILY 10 Days #20 cap 02/27/21 [Rx] Oxygen Therapy Mode: Room Air Patient Handouts: Doxycycline tablets or capsules, Cellulitis, Adult, [id number] Forms: ED Department Discharge Referrals: PCP,None [Primary Care Provider] - Marion Washington MD [Ordering Only Provider] - - Discharge Summary/Plan Comment DC Time >30 min.: Yes Total # of Minutes for Discharge Time: 45 - General Info Date of Service: 02/27/21 Admission Dx/Problem (Free Text: Admission Diagnosis/Problem Admission Diagnosis/Problem Cellulitis Functional Status: Reports: Pain Controlled - Review of Systems General: Reports: No Symptoms HEENT: Reports: No Symptoms Pulmonary: Reports: No Symptoms Cardiovascular: Reports: No Symptoms Gastrointestinal: Reports: No Symptoms Genitourinary: Reports: No Symptoms Musculoskeletal: Reports: No Symptoms Skin: Reports: Other (left 1st finger laceration, left wrist ulcer, left ankle ulcer, left lower leg barger redness) Neurological: Reports: No Symptoms Psychiatric: Reports: No Symptoms - Patient Data Vitals - Most Recent: Last Vital Signs Temp 98.3 F 02/27/21 08:00 Pulse 85 02/27/21 08:00 Resp 23 H 02/27/21 08:00 BP 110/72 02/27/21 08:00 Pulse Ox 98 02/27/21 08:00 Weight - Most Recent: 180 lb I&O - Last 24 hours: Intake & Output 02/26/21 02/27/21 02/27/21 22:59 06:59 14:59 Intake Total 780 240 Balance 780 240 Lab Results - Last 24 hrs: Laboratory Results - last 24 hr 02/26/21 02/26/21 02/26/21 Range/Units 12:17 17:09 20:59 WBC (5.0-10.0) 10^3/uL RBC (4.6-6.2) 10^6/uL Hgb (14.0-18.0) g/dL Hct (40.0-54.0) % MCV (80-100) fL MCH (27.0-34.0) pg MCHC (33.0-35.0) g/dL Plt Count (150-450) 10^3/uL Sodium (136-145) mmol/L Potassium (3.5-5.1) mmol/L Chloride (98-107) mmol/L Carbon Dioxide (21-32) mmol/L Anion Gap (7-13) mEq/L BUN (7-18) mg/dL Creatinine (0.70-1.30) mg/dL Est Cr Clr Drug Dosing mL/min Estimated GFR (MDRD) Glucose (70-99) mg/dL POC Glucose 121 H 114 H 130 H (70-99) mg/dL Calcium (8.5-10.1) mg/dL Vancomycin Trough (10.0-20.0) ug/mL 02/26/21 02/27/21 02/27/21 Range/Units 21:35 05:30 05:30 WBC 5.5 (5.0-10.0) 10^3/uL RBC 4.17 L (4.6-6.2) 10^6/uL Hgb 14.3 (14.0-18.0) g/dL Hct 42.0 (40.0-54.0) % MCV 100.7 H (80-100) fL MCH 34.3 H (27.0-34.0) pg MCHC 34.0 (33.0-35.0) g/dL Plt Count 273 (150-450) 10^3/uL Sodium 135 L (136-145) mmol/L Potassium 3.7 (3.5-5.1) mmol/L Chloride 102 (98-107) mmol/L Carbon Dioxide 25 (21-32) mmol/L Anion Gap 11.7 (7-13) mEq/L BUN 10 (7-18) mg/dL Creatinine 0.69 L (0.70-1.30) mg/dL Est Cr Clr Drug Dosing 134.93 mL/min Estimated GFR (MDRD) > 60 Glucose 106 H (70-99) mg/dL POC Glucose (70-99) mg/dL Calcium 9.1 (8.5-10.1) mg/dL Vancomycin Trough 15.0 (10.0-20.0) ug/mL 02/27/21 Range/Units 07:37 WBC (5.0-10.0) 10^3/uL RBC (4.6-6.2) 10^6/uL Hgb (14.0-18.0) g/dL Hct (40.0-54.0) % MCV (80-100) fL MCH (27.0-34.0) pg MCHC (33.0-35.0) g/dL Plt Count (150-450) 10^3/uL Sodium (136-145) mmol/L Potassium (3.5-5.1) mmol/L Chloride (98-107) mmol/L Carbon Dioxide (21-32) mmol/L Anion Gap (7-13) mEq/L BUN (7-18) mg/dL Creatinine (0.70-1.30) mg/dL Est Cr Clr Drug Dosing mL/min Estimated GFR (MDRD) Glucose (70-99) mg/dL POC Glucose 106 H (70-99) mg/dL Calcium (8.5-10.1) mg/dL Vancomycin Trough (10.0-20.0) ug/mL LUIS Results - Last 24 hrs: Microbiology 02/23/21 15:47 Aerobic Blood Culture - Preliminary Blood - Arm, Right NO GROWTH AFTER 3 DAYS Anaerobic Blood Culture - Preliminary NO GROWTH AFTER 3 DAYS 02/23/21 15:42 Aerobic Blood Culture - Preliminary Blood - Arm, Left NO GROWTH AFTER 3 DAYS Anaerobic Blood Culture - Preliminary NO GROWTH AFTER 3 DAYS 02/25/21 05:10 MRSA (PCR) - Final Nasal, Unspecified 02/23/21 17:58 Gram Stain - Final Finger, Left - Left Index Wound Culture - Final (Mrsa) Staphylococcus Aureus Med Orders - Current: Current Medications Acetaminophen (Acetaminophen 325 Mg Tab) 650 mg PO Q4H PRN PRN Reason: Pain (Mild 1-3)/fever Last Admin: 02/26/21 20:21 Dose: 650 mg Documented by: Hydrocodone Bitart/Acetaminophen (Acetaminophen/Hydrocodone 325-10 Mg Tab) 1 tab PO Q4H PRN PRN Reason: Pain (severe 7-10) Docusate Sodium (Docusate Sodium 100 Mg Cap) 100 mg PO BID PRN PRN Reason: Constipation Heparin Sodium (Porcine) (Heparin Sodium 5,000 Units/Ml Vial) 5,000 units SUBCUT Q8HR [facility] Last Admin: 02/27/21 06:00 Dose: 5,000 units Documented by: Vancomycin HCl (Vancomycin 1.5 Gm/300 Ml) 300 mls @ 150 mls/hr IV Q8H PAMELA Last Admin: 02/27/21 06:00 Dose: 150 mls/hr Documented by: Neomycin/Polymyxin/Bacitracin (Bacitracin/Neomycin/Polymyxin B Oint 28.4 Gm Tube) 0 gm TOP BID [facility] Last Admin: 02/26/21 20:17 Dose: 1 applic Documented by: Ondansetron HCl (Ondansetron 4 Mg/2 Ml Sdv) 4 mg IVPUSH Q6H PRN PRN Reason: Nausea/Vomiting Sodium Chloride (Sodium Chloride 0.9% 10 Ml Syringe) 10 ml FLUSH ASDIRECTED PRN PRN Reason: Keep Vein Open Last Admin: 02/25/21 10:44 Dose: 10 ml Documented by: Temazepam (Temazepam 15 Mg Cap) 15 mg PO BEDTIME PRN PRN Reason: Sleep Last Admin: 02/26/21 20:20 Dose: 15 mg Documented by: Vancomycin HCl (Pharmacy To Dose - Vancomycin) 1 dose .XX ASDIRECTED PAMELA Discontinued Medications Vancomycin HCl 1.25 gm/ Sodium (Chloride) 250 mls @ 167 mls/hr IV ONETIME ONE Stop: 02/23/21 17:29 Last Admin: 02/23/21 16:16 Dose: 167 mls/hr Documented by: Vancomycin HCl (Vancomycin 1.5 Gm/300 Ml) 300 mls @ 150 mls/hr IV Q8H [facility] Last Admin: 02/23/21 20:41 Dose: Not Given Documented by: Vancomycin HCl (Vancomycin 1.5 Gm/300 Ml) 300 mls @ 150 mls/hr IV Q8H [facility] Last Admin: 02/24/21 22:17 Dose: 150 mls/hr Documented by: Clindamycin/Sodium Chloride (600 mg/ Premix) 50 mls @ 150 mls/hr IV Q8H [facility] Stop: 03/06/21 10:01 Last Admin: 02/25/21 10:43 Dose: 150 mls/hr Documented by: Ibuprofen (Ibuprofen 400 Mg Tab) 400 mg PO Q6H PRN PRN Reason: Pain (moderate 4-6) Iopamidol (Iopamidol 612 Mg/Ml 100 Ml Bottle) 100 ml IVPUSH ONETIME ONE Stop: 02/24/21 13:01 Last Admin: 02/24/21 13:22 Dose: 100 ml Documented by: Levofloxacin (Levofloxacin 500 Mg Tab) 750 mg PO Q24H [facility] Last Admin: 02/23/21 20:42 Dose: Not Given Documented by: Levofloxacin (Levofloxacin 500 Mg Tab) 750 mg PO Q24H [facility] Last Admin: 02/24/21 21:39 Dose: 750 mg Documented by: Potassium Chloride (Potassium Chloride 10 Meq Tab.Er) 20 meq PO ONETIME ONE Stop: 02/23/21 18:04 Last Admin: 02/23/21 20:41 Dose: Not Given Documented by: Potassium Chloride (Potassium Chloride 10 Meq Tab.Er) 20 meq PO ONETIME ONE Stop: 02/23/21 20:31 Last Admin: 02/23/21 20:40 Dose: 20 meq Documented by: Vancomycin HCl (Pharmacy To Dose - Vancomycin) 1 dose .XX ASDIRECTED PAMELA - Exam Quality Assessment: Denies: Supplemental Oxygen, DVT Prophylaxis, Skin Breakdown General: Reports: Alert, Oriented, Cooperative, No Acute Distress HEENT: Reports: EOMI Neck: Reports: Supple Lungs: Reports: Clear to Auscultation, Normal Respiratory Effort. Denies: Rales, Rub, Wheezing Cardiovascular: Reports: Regular Rate, Regular Rhythm. Denies: Murmurs GI/Abdominal Exam: Soft, Non-Tender Back Exam: Reports: Normal Inspection Extremities: Normal Inspection, Normal Range of Motion, Non-Tender Skin: Reports: Warm, Dry, Other (stage 1 ulceration to left lateral malleolus, healing well. left lateral wrist stage 1 ulceration healing well. left 1st finger laceration C/D/I) Wound/Incisions: Reports: Healing Well Neurological: Reports: No New Focal Deficit Psy/Mental Status: Reports: Alert, Normal Affect, Normal Mood *Q Meaningful Use (DIS) - VTE *Q VTE Mechanical Contraindications *Q: Tx/Proc Refused byPt VTE Pharmacological Contraindications *Q: Tx/Proc Refused by Pt VTE Anticoagulation Contraindications: Tx/proc Refused by PT - Stroke *Q Aspirin Contraindications Stroke *Q: Patient Refusal Anticoagulation Contraindications Stroke *Q: TX/PROC Refused by PT Antithrombotic Contraindications Stroke *Q: TX/PROC Refused by PT Statin Contraindications Stroke *Q: TX/PROC Refused by PT Rehabilitation Assessment Contraindication *Q: Tx/proc refused by pt - AMI *Q Aspirin Contraindications AMI *Q: TX/PROC Refused by PT Statin Contraindications AMI *Q: TX/Proc Refused by PT
== END 2021-02-27 10:45 | disposition home or self-care (01) | DRG 872 ==
LOC: DL.ED 16:26 → DL.MS 16:50 → DL.ED 17:32
PROVIDERS: ADMIT Internal Medicine; ATTEND Hospitalist
DX: A41.9 Sepsis, unspecified organism (principal); L03.116 Cellulitis of left lower limb; M86.9 Osteomyelitis, unspecified; L03.818 Cellulitis of other sites; G83.9 Paralytic syndrome, unspecified; F17.210 Nicotine dependence, cigarettes, uncomplicated; B95.62 Methicillin resistant Staphylococcus aureus infection as the cause of diseases classified elsewhere; S62.631A Displaced fracture of distal phalanx of left index finger, initial encounter for closed fracture; L98.9 Disorder of the skin and subcutaneous tissue, unspecified; M24.541 Contracture, right hand; F12.10 Cannabis abuse, uncomplicated; S67.191A Crushing injury of left index finger, initial encounter; Z71.6 Tobacco abuse counseling; G80.9 Cerebral palsy, unspecified; Z90.49 Acquired absence of other specified parts of digestive tract; W25.XXXA Contact with sharp glass, initial encounter; E27.1 Primary adrenocortical insufficiency; Z88.0 Allergy status to penicillin; Z20.822 Contact with and (suspected) exposure to COVID-19
CPT/HCPCS: 36415; 73140; 80053; 83605; 85025; 87040 ×2; 87635; 96365; 99285; J3370; J7050; 73201-LT; 80048; 80202; 80305-QW; 81001; 82947; 85027; 86140; 87070; 87077; 87186; 87205; 87641; A9270-GY; J1644; J3490; Q9967; U0002

== ENCOUNTER 2021-03-10 02:50 | Emergency (ER) | payer MEDICAID ==
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
[2021-03-10 03:50] VITALS: BP 159/104; PULSE 95
[2021-03-10 04:04] LABS: ANION GAP 9.9 mEq/L (7-13); CHLORIDE,CL 95 mmol/L (98-107); SODIUM,NA 125 mmol/L (136-145)
[2021-03-10] MEDS ORDERED: Lactated Ringers 1,000 ML IV ONE (04:13)
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
== END 2021-03-10 05:21 ==
LOC: DL.ED 02:50
DX: S06.5X0A Traumatic subdural hemorrhage without loss of consciousness, initial encounter (principal); F10.129 Alcohol abuse with intoxication, unspecified; E87.6 Hypokalemia; E87.1 Hypo-osmolality and hyponatremia; Z88.0 Allergy status to penicillin; Y90.8 Blood alcohol level of 240 mg/100 ml or more; W50.1XXA Accidental kick by another person, initial encounter
CPT/HCPCS: 36415; 70450; 72125; 80053; 80307; 85025; 99285-25; J7120

== ENCOUNTER 2021-03-31 05:27 | Emergency (ER) | payer MEDICAID ==
[2021-03-31] MEDS ORDERED: Sodium Chloride 0.9% 10 ML Syringe FLUSH PRN (05:32)
[2021-03-31] MEDS ORDERED: MVI, Adult with Vitamin K 10 ML, Folic Acid 1 MG, Thiamine 100 MG in Lactated Ringers 1... IV ONE ×4 (05:41)
[2021-03-31 05:42] VITALS: BP 148/92; PULSE 106
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
--- NOTE | 2021-03-31 06:33 | CT ---
PROCEDURE INFORMATION: Exam: CT Head Without Contrast Exam date and time: 03/31/2021 6:05 AM Age: 40 years old Clinical indication: Pain; Headache; Other: Previous subdural bleed; Additional info: HERNANDEZ, previous subdural bleed earlier this month TECHNIQUE: Imaging protocol: Computed tomography of the head without contrast. Radiation optimization: All CT scans at this facility use at least one of these dose optimization techniques: automated exposure control; mA and/or kV adjustment per patient size (includes targeted exams where dose is matched to clinical indication); or iterative reconstruction. COMPARISON: CT Head wo Cont 03/10/2021 3:41 AM FINDINGS: Brain: There is moderate parenchymal atrophy and chronic small vessel disease. Mild interval increase in [id number] shift of the midline. No infarct. There is a large, loculated left frontoparietal subdural hemorrhage which has increased slightly in size and demonstrates tiny areas of acute on chronic hemorrhage. Estimated volume is 227 cc. Cerebral ventricles: No ventriculomegaly. Paranasal sinuses: Paranasal sinuses are clear. No air-fluid level. Mastoid air cells: Visualized mastoid air cells are clear. Bones/joints: No calvarial or skull base fracture. Soft tissues: Unremarkable. IMPRESSION: 1. Moderate parenchymal atrophy and chronic small vessel disease. 2. There is a large, loculated left frontoparietal subdural hemorrhage which has increased slightly in size and demonstrates tiny areas of acute on chronic hemorrhage. Estimated volume is 227 cc. 3. No infarct.
[2021-03-31 07:09] LABS: ANION GAP 19.4 mEq/L (7-13); CHLORIDE,CL 101 mmol/L (98-107); SODIUM,NA 143 mmol/L (136-145)
== END 2021-03-31 07:33 ==
LOC: DL.ED 05:27
DX: S06.5X0A Traumatic subdural hemorrhage without loss of consciousness, initial encounter (principal); Z88.0 Allergy status to penicillin; Z72.0 Tobacco use; Z20.822 Contact with and (suspected) exposure to COVID-19; Y04.0XXA Assault by unarmed brawl or fight, initial encounter
CPT/HCPCS: 36415; 70450; 80053; 80307; 81001; 85025; 85610; 87635; 96365; 99285; J3411; J7120; J3490; U0002

== ENCOUNTER 2021-04-13 15:47 | Emergency (ER) | payer MEDICAID ==
[2021-04-13] MEDS ORDERED: levETIRAcetam 500 MG Tab PO ONE (16:04)
== END 2021-04-13 17:30 | disposition home or self-care (01) ==
LOC: DL.ED 15:47
DX: S01.01XD Laceration without foreign body of scalp, subsequent encounter (principal); G40.909 Epilepsy, unspecified, not intractable, without status epilepticus; Z48.02 Encounter for removal of sutures; Z88.0 Allergy status to penicillin
CPT/HCPCS: 99281; A9270

== ENCOUNTER 2021-04-30 19:58 | Emergency (ER) | payer MEDICAID ==
[2021-04-30 20:10] VITALS: PULSE 86
[2021-04-30] MEDS ORDERED: Lidocaine 1% with EPINEPHrine 1:100,000 20 ML MDV INJECT ONE (20:10)
[2021-04-30] MEDS ORDERED: Bacitracin Oint 1 GM U/D Packet TOP ONE (20:10)
[2021-04-30 20:15] VITALS: BP 133/93
[2021-04-30 21:01] LABS: CHLORIDE,CL 105 mmol/L (98-107); SODIUM,NA 143 mmol/L (136-145)
[2021-04-30] MEDS ORDERED: levETIRAcetam 500 MG Tab PO ONE (21:52)
== END 2021-04-30 22:29 | disposition home or self-care (01) ==
LOC: DL.ED 19:58
DX: S06.0X0A Concussion without loss of consciousness, initial encounter (principal); S01.311A Laceration without foreign body of right ear, initial encounter; S01.411A Laceration without foreign body of right cheek and temporomandibular area, initial encounter; S01.111A Laceration without foreign body of right eyelid and periocular area, initial encounter; G40.909 Epilepsy, unspecified, not intractable, without status epilepticus; F10.120 Alcohol abuse with intoxication, uncomplicated; Y90.8 Blood alcohol level of 240 mg/100 ml or more; Z87.820 Personal history of traumatic brain injury; Z88.0 Allergy status to penicillin; Z79.899 Other long term (current) drug therapy; Y04.0XXA Assault by unarmed brawl or fight, initial encounter
CPT/HCPCS: 12013; 36415; 70450; 70486; 80053; 80307; 85025; 99284; A9270; 99285

== ENCOUNTER 2021-05-01 19:03 | Emergency (ER) | payer MEDICAID ==
[2021-05-01] MEDS ORDERED: levETIRAcetam 500 MG Tab PO ONE (19:04)
[2021-05-01] MEDS ORDERED: Acetaminophen 325 MG Tab PO ONE (19:16)
[2021-05-01] MEDS ORDERED: Aluminum Hydroxide/Magnesium Hydroxide/Simethicone Susp 30 ML Cup PO ONE (19:56)
[2021-05-01 20:02] LABS: ANION GAP 12.6 mEq/L (7-13); CHLORIDE,CL 100 mmol/L (98-107); SODIUM,NA 135 mmol/L (136-145)
[2021-05-01] MEDS ORDERED: Acetaminophen 325 MG Tab ONE (22:18)
[2021-05-01] MEDS ORDERED: levETIRAcetam 500 MG Tab ONE (22:18)
[2021-05-01 22:27] VITALS: BP 133/86; PULSE 90
== END 2021-05-01 22:27 | disposition home or self-care (01) ==
LOC: DL.ED 19:03
DX: S06.0X0A Concussion without loss of consciousness, initial encounter (principal); F10.129 Alcohol abuse with intoxication, unspecified; R56.9 Unspecified convulsions; Y90.8 Blood alcohol level of 240 mg/100 ml or more; Z87.820 Personal history of traumatic brain injury; Z98.890 Other specified postprocedural states; Z72.0 Tobacco use; Z88.0 Allergy status to penicillin; Z79.899 Other long term (current) drug therapy; Y04.0XXA Assault by unarmed brawl or fight, initial encounter
CPT/HCPCS: 36415; 70450; 80053; 80177; 80307; 85025; 99284; 99284-25; A9270-GY

== ENCOUNTER 2021-06-22 21:55 | Emergency (ER) | payer MEDICAID ==
[2021-06-22 22:17] VITALS: BP 126/89; PULSE 96
== END 2021-06-23 00:04 | disposition left against medical advice (07) ==
LOC: DL.ED 21:55
DX: S00.03XA Contusion of scalp, initial encounter (principal); Z88.0 Allergy status to penicillin; Z72.0 Tobacco use; Z53.8 Procedure and treatment not carried out for other reasons; Y04.0XXA Assault by unarmed brawl or fight, initial encounter
CPT/HCPCS: 70450; 70486; 73130-LT; 99284; 99285-25

== ENCOUNTER 2021-07-21 20:31 | Emergency (ER) | payer MEDICAID ==
[2021-07-21 20:48] VITALS: BP 128/88; PULSE 77
[2021-07-21 21:10] LABS: ANION GAP 14.3 mEq/L (7-13); CHLORIDE,CL 102 mmol/L (98-107); SODIUM,NA 143 mmol/L (136-145)
[2021-07-21] MEDS ORDERED: Ketorolac 30 MG/ML SDV IVPUSH ONE (22:17)
== END 2021-07-21 22:29 | disposition home or self-care (01) ==
LOC: DL.ED 20:31
DX: S09.90XA Unspecified injury of head, initial encounter (principal); Z88.0 Allergy status to penicillin; Z79.899 Other long term (current) drug therapy; Z90.49 Acquired absence of other specified parts of digestive tract; W50.0XXA Accidental hit or strike by another person, initial encounter
CPT/HCPCS: 36415; 70450; 72125; 80053; 80307; 85025; 85610; 96374; 99284; J1885

== ENCOUNTER 2021-08-08 17:18 | Emergency (ER) | payer MEDICAID ==
[2021-08-08 17:18] VITALS: BP 109/94; PULSE 110
== END 2021-08-08 17:55 | disposition home or self-care (01) ==
LOC: DL.ED 17:18
DX: S00.81XA Abrasion of other part of head, initial encounter (principal); Z88.0 Allergy status to penicillin; Z72.0 Tobacco use; W22.09XA Striking against other stationary object, initial encounter
CPT/HCPCS: 70450; 99283; 99284-25

== ENCOUNTER 2021-10-22 00:20 | Emergency (ER) | payer MEDICAID ==
[2021-10-22 00:17] VITALS: BP 153/56; PULSE 90
[2021-10-22] MEDS ORDERED: Bacitracin Oint 1 GM U/D Packet TOP ONE (00:30)
== END 2021-10-22 02:56 | disposition home or self-care (01) ==
LOC: DL.ED 00:20
DX: S80.811A Abrasion, right lower leg, initial encounter (principal); S70.211A Abrasion, right hip, initial encounter; S80.211A Abrasion, right knee, initial encounter; T23.002A Burn of unspecified degree of left hand, unspecified site, initial encounter; F10.229 Alcohol dependence with intoxication, unspecified; F17.210 Nicotine dependence, cigarettes, uncomplicated; Z88.0 Allergy status to penicillin
CPT/HCPCS: 73620-RT; 99283; 99284

== ENCOUNTER 2022-07-17 19:55 | Emergency (ER) | payer MEDICAID ==
[2022-07-17 20:12] VITALS: BP 126/93; PULSE 97
[2022-07-17] MEDS: Cephalexin 500 MG Cap PO ONE (21:24)
== END 2022-07-17 21:25 | disposition home or self-care (01) ==
LOC: DL.ED 19:55
DX: J01.10 Acute frontal sinusitis, unspecified (principal); Z88.0 Allergy status to penicillin
CPT/HCPCS: 70450; 70486; 99283; 99284; A9270-GY

== ENCOUNTER 2023-10-14 13:14 | Emergency (ER) | payer MEDICAID ==
[2023-10-14 13:40] LABS: BASOPHILS PERCENT AUTO 1.3 % (0.0-1.0); EOSINOPHILS PERCENT AUTO 3.6 % (1.0-3.0); HEMATOCRIT 45.8 % (40.0-54.0); HEMOGLOBIN 15.3 g/dL (14.0-18.0); LYMPHOCYTES PERCENT AUTO 22.2 % (20.5-50.1); MEAN CORPUSCULAR HEMOGLOBIN 33.2 pg (27.0-34.0); MEAN CORPUSCULAR HGB CONC 33.4 g/dL (33.0-35.0); MEAN CORPUSCULAR VOLUME 99.3 fL (80-100); MONOCYTES PERCENT AUTO 7.9 % (2-8); PLATELET COUNT,PLT 134 10^3/uL (150-450); RED BLOOD CELL COUNT 4.61 10^6/uL (4.6-6.2); WHITE BLOOD CELL COUNT,WBC 5.6 10^3/uL (5.0-10.0)
[2023-10-14 13:58] LABS: PROTHROMBIN TIME 10.4 SEC (9.0-12.0); PTT,PARTIAL THROMBOPLSTIN TIME 24.5 SEC (22.0-34.0)
[2023-10-14 13:59] LABS: A/G RATIO 0.8; ALBUMIN 3.5 g/dL (3.4-5.0); ANION GAP 15.4 mEq/L (7-13); BILIRUBIN TOTAL 1.8 mg/dL (0.2-1.0); BUN/CREATININE RATIO 10.3 (No establ ref range); CALCIUM 8.4 mg/dL (8.5-10.1); CREATININE 0.78 mg/dL (0.70-1.30); EST CRCL DRUG DOSING (CG) 135.16 mL/min; MAGNESIUM 1.5 mg/dL (1.8-2.4); POTASSIUM,K 3.4 mmol/L (3.5-5.1); PROTEIN TOTAL,TP 7.8 g/dL (6.4-8.2)
[2023-10-14] MEDS: MVI, Adult with Vitamin K 10 ML, Folic Acid 1 MG, Thiamine 100 MG in Lactated Ringers 1... IV ONE (15:21)
[2023-10-14] MEDS: Sodium Chloride 0.9% 10 ML Syringe FLUSH PRN (15:21)
[2023-10-14 15:29] LABS: AMPHETAMINES,URINE NEGATIVE (NEGATIVE); BARBITURATES,URINE NEGATIVE (NEGATIVE); BENZODIAZEPINE,URINE NEGATIVE (NEGATIVE); MDMA (ECSTASY), URINE NEGATIVE (NEGATIVE); METHADONE,URINE NEGATIVE (NEGATIVE); METHAMPHETAMINES,URINE POSITIVE (NEGATIVE); OPIATES,URINE NEGATIVE (NEGATIVE); OXYCODONE,URINE NEGATIVE (NEGATIVE); PHENCYCLIDINE,URINE NEGATIVE (NEGATIVE); TCA,URINE NEGATIVE (NEGATIVE)
== END 2023-10-14 16:21 | disposition home or self-care (01) ==
LOC: DL.ED 13:14
DX: S00.03XA Contusion of scalp, initial encounter (principal); M54.2 Cervicalgia; F15.10 Other stimulant abuse, uncomplicated; F10.929 Alcohol use, unspecified with intoxication, unspecified; Z90.49 Acquired absence of other specified parts of digestive tract; Z79.899 Other long term (current) drug therapy; Z88.0 Allergy status to penicillin; Z88.8 Allergy status to other drugs, medicaments and biological substances; W18.30XA Fall on same level, unspecified, initial encounter
CPT/HCPCS: 36415; 70450; 71045; 72125; 80053; 80305-QW; 80307; 82947; 83735; 85025; 85610; 85730; 96365; 99284; 99285-25; J3411; J3490; J7120

== ENCOUNTER 2023-11-17 23:02 | Emergency (ER) | payer MEDICAID ==
[2023-11-17 23:13] LABS: BASOPHILS PERCENT AUTO 1.2 % (0.0-1.0); EOSINOPHILS PERCENT AUTO 1.4 % (1.0-3.0); HEMATOCRIT 45.1 % (40.0-54.0); LYMPHOCYTES PERCENT AUTO 26.5 % (20.5-50.1); MEAN CORPUSCULAR HEMOGLOBIN 33.1 pg (27.0-34.0); MEAN CORPUSCULAR HGB CONC 33.3 g/dL (33.0-35.0); MEAN CORPUSCULAR VOLUME 99.6 fL (80-100); MONOCYTES PERCENT AUTO 14.4 % (2-8); NEUTROPHILS PERCENT AUTO 56.5 % (42.2-75.2); PLATELET COUNT,PLT 153 10^3/uL (150-450); RED BLOOD CELL COUNT 4.53 10^6/uL (4.6-6.2); WHITE BLOOD CELL COUNT,WBC 6.5 10^3/uL (5.0-10.0)
[2023-11-17] MEDS: MVI, Adult with Vitamin K 10 ML, Folic Acid 1 MG, Thiamine 100 MG in Lactated Ringers 1... IV ONE (23:28)
[2023-11-17 23:34] LABS: ALANINE AMINOTRANSFERASE,ALT 85 U/L (16-63); ALBUMIN 3.9 g/dL (3.4-5.0); ALKALINE PHOSPHATASE 71 U/L (46-116); ANION GAP 17.3 mEq/L (7-13); ASPARTATE AMNIOTRANSFERASE,AST 66 U/L (15-37); BILIRUBIN TOTAL 0.6 mg/dL (0.2-1.0); BLOOD UREA NITROGEN,BUN 6 mg/dL (7-18); BUN/CREATININE RATIO 7.2 (No establ ref range); CALCIUM 9.3 mg/dL (8.5-10.1); CARBON DIOXIDE,CO2 23 mmol/L (21-32); CHLORIDE,CL 105 mmol/L (98-107); CREATININE 0.83 mg/dL (0.70-1.30); ETHANOL BLOOD MEDICAL 277 mg/dL (0); GLUCOSE RANDOM 115 mg/dL (70-99); MAGNESIUM 1.8 mg/dL (1.8-2.4); POTASSIUM,K 3.3 mmol/L (3.5-5.1); SODIUM,NA 142 mmol/L (136-145)
[2023-11-17 23:35] LABS: ESTIMATED GFR 110 mL/min (>=60)
[2023-11-17 23:36] LABS: INR 0.9 (0.9-1.2); PROTHROMBIN TIME 9.8 SEC (9.0-12.0)
[2023-11-18 00:12] VITALS: BP 148/103; PULSE 111
[2023-11-18] MEDS: Clindamycin in 0.9 % Sod Chlor 900 MG in Premix Bag 1 BAG IV ONE (00:36)
[2023-11-18] MEDS: Sodium Chloride 0.9% 1,000 ML IV ONE (00:36)
[2023-11-18] MEDS: Potassium Chloride 20 MEQ in Premix Bag 1 BAG IV ONE (01:09)
[2023-11-18] MEDS: Take Home: Clindamycin HCl 150 MG, 12 Cap Pack PO ONE (01:10)
[2023-11-18 01:36] LABS: AMPHETAMINES,URINE NEGATIVE (NEGATIVE); BARBITURATES,URINE NEGATIVE (NEGATIVE); BENZODIAZEPINE,URINE NEGATIVE (NEGATIVE); MDMA (ECSTASY), URINE NEGATIVE (NEGATIVE); METHADONE,URINE NEGATIVE (NEGATIVE); METHAMPHETAMINES,URINE NEGATIVE (NEGATIVE); OPIATES,URINE NEGATIVE (NEGATIVE); OXYCODONE,URINE NEGATIVE (NEGATIVE); PHENCYCLIDINE,URINE NEGATIVE (NEGATIVE); TCA,URINE NEGATIVE (NEGATIVE)
[2023-11-18 01:37] LABS: APPEARANCE,URINE CLEAR (CLEAR); BILIRUBIN,URINE NEGATIVE (NEGATIVE); COLOR,URINE YELLOW (YELLOW); GLUCOSE,URINE NEGATIVE (NEGATIVE); KETONES,URINE NEGATIVE (NEGATIVE); LEUKOCYTE ESTERASE,URINE NEGATIVE (NEGATIVE); NITRITE,URINE NEGATIVE (NEGATIVE); OCCULT BLOOD,URINE NEGATIVE (NEGATIVE); PROTEIN,URINE NEGATIVE (NEGATIVE); UROBILINOGEN,URINE 0.2 mg/dL (0.2-1.0)
[2023-11-18] MEDS: Potassium Chloride 10 MEQ Tab.ER PO ONE (02:26)
== END 2023-11-18 02:26 | disposition home or self-care (01) ==
LOC: DL.ED 23:02
DX: S01.01XA Laceration without foreign body of scalp, initial encounter (principal); E87.6 Hypokalemia; F10.929 Alcohol use, unspecified with intoxication, unspecified; I10 Essential (primary) hypertension; Z90.49 Acquired absence of other specified parts of digestive tract; Z79.899 Other long term (current) drug therapy; Z88.0 Allergy status to penicillin; Z88.8 Allergy status to other drugs, medicaments and biological substances; W18.30XA Fall on same level, unspecified, initial encounter
CPT/HCPCS: 12001; 12011; 36415; 70450; 71045; 72125; 73030; 80053; 80305; 80307; 81003; 83735; 84484; 85025; 85610; 93005; 93010; 96365; 96367; 99284; 99285; A9270; J3411; J3480; J3490; J7030; J7120

== ENCOUNTER 2023-12-23 21:37 | Emergency (ER) | payer MEDICAID ==
[2023-12-23] MEDS: Famotidine 20 MG/2 ML SDV IVPUSH ONE (22:00)
[2023-12-23 22:05] LABS: BASOPHILS PERCENT AUTO 0.7 % (0.0-1.0); EOSINOPHILS PERCENT AUTO 1.2 % (1.0-3.0); HEMOGLOBIN 15.1 g/dL (14.0-18.0); LYMPHOCYTES PERCENT AUTO 19.2 % (20.5-50.1); MEAN CORPUSCULAR HEMOGLOBIN 33.5 pg (27.0-34.0); MEAN CORPUSCULAR HGB CONC 33.6 g/dL (33.0-35.0); MEAN CORPUSCULAR VOLUME 99.8 fL (80-100); MONOCYTES PERCENT AUTO 11.9 % (2-8); PLATELET COUNT,PLT 106 10^3/uL (150-450); RED BLOOD CELL COUNT 4.51 10^6/uL (4.6-6.2)
[2023-12-23] MEDS: Ondansetron 4 MG/2 ML SDV IVPUSH ONE (22:05)
[2023-12-23] MEDS: levETIRAcetam in NaCl (iso-os) 1,000 MG in Premix Bag 1 BAG IV ONE (22:07)
[2023-12-23 22:24] LABS: A/G RATIO 0.8; ALANINE AMINOTRANSFERASE,ALT 67 U/L (16-63); ALBUMIN 3.4 g/dL (3.4-5.0); ALKALINE PHOSPHATASE 91 U/L (46-116); ANION GAP 20.1 mEq/L (7-13); ASPARTATE AMNIOTRANSFERASE,AST 89 U/L (15-37); BLOOD UREA NITROGEN,BUN 7 mg/dL (7-18); BUN/CREATININE RATIO 6.2 (No establ ref range); CALCIUM 9.5 mg/dL (8.5-10.1); CARBON DIOXIDE,CO2 21 mmol/L (21-32); CHLORIDE,CL 93 mmol/L (98-107); CREATININE 1.13 mg/dL (0.70-1.30); GLUCOSE RANDOM 129 mg/dL (70-99); LIPASE 171 U/L (16-77); MAGNESIUM 1.4 mg/dL (1.8-2.4); POTASSIUM,K 3.1 mmol/L (3.5-5.1); PROTEIN TOTAL,TP 7.7 g/dL (6.4-8.2); SODIUM,NA 131 mmol/L (136-145)
[2023-12-23 22:27] VITALS: BP 164/115; PULSE 101
[2023-12-23 22:46] LABS: ESTIMATED GFR 82 mL/min (>=60); ETHANOL BLOOD MEDICAL < 3 mg/dL (0)
[2023-12-23] MEDS: Sodium Chloride 0.9% 1,000 ML IV ONE (22:55)
[2023-12-24 00:30] LABS: AMPHETAMINES,URINE NEGATIVE (NEGATIVE); BARBITURATES,URINE NEGATIVE (NEGATIVE); BENZODIAZEPINE,URINE POSITIVE (NEGATIVE); MDMA (ECSTASY), URINE NEGATIVE (NEGATIVE); METHADONE,URINE NEGATIVE (NEGATIVE); METHAMPHETAMINES,URINE NEGATIVE (NEGATIVE); OPIATES,URINE NEGATIVE (NEGATIVE); OXYCODONE,URINE NEGATIVE (NEGATIVE); PHENCYCLIDINE,URINE NEGATIVE (NEGATIVE); TCA,URINE NEGATIVE (NEGATIVE)
[2023-12-24 00:32] LABS: APPEARANCE,URINE CLEAR (CLEAR); BILIRUBIN,URINE NEGATIVE (NEGATIVE); COLOR,URINE YELLOW (YELLOW); GLUCOSE,URINE NEGATIVE (NEGATIVE); KETONES,URINE 15 (NEGATIVE); LEUKOCYTE ESTERASE,URINE NEGATIVE (NEGATIVE); NITRITE,URINE NEGATIVE (NEGATIVE); OCCULT BLOOD,URINE TRACE-INTACT (NEGATIVE); PH,URINE 8.5 (5.0-9.0); PROTEIN,URINE 100 (NEGATIVE)
[2023-12-24 00:42] LABS: AMORPHOUS SEDIMENT,URINE FEW /HPF (NOT SEEN); BACTERIA,URINE FEW /HPF (0-FEW/HPF); EPITHELIAL CELLS,URINE FEW /HPF (NOT SEEN); MUCUS,URINE FEW /LPF (NOT SEEN); WBC,URINE 0-5 /HPF (0-5/HPF)
[2023-12-24 00:43] LABS: HYALINE CASTS,URINE RARE
[2023-12-24] MEDS: Potassium Chloride 10 MEQ Tab.ER PO ONE (00:59)
== END 2023-12-24 01:15 ==
LOC: DL.ED 21:37
DX: G40.909 Epilepsy, unspecified, not intractable, without status epilepticus (principal); E87.6 Hypokalemia; Z90.49 Acquired absence of other specified parts of digestive tract; Z88.0 Allergy status to penicillin; Z88.8 Allergy status to other drugs, medicaments and biological substances
CPT/HCPCS: 36415; 70450; 80053; 80305-QW; 80307; 81001; 83690; 83735; 84484; 85025; 93005; 93010; 96361; 96374; 96375; 99284; 99285-25; A9270-GY; J1953; J2405; J3490; J7030

== ENCOUNTER 2024-04-13 04:16 | Inpatient (IN) | payer MEDICAID ==
[2024-04-13] MEDS ORDERED: Sodium Chloride 0.9% 10 ML Syringe FLUSH PRN (04:31)
[2024-04-13 04:41] LABS: BASOPHILS PERCENT AUTO 0.5 % (0.0-1.0); EOSINOPHILS PERCENT AUTO 0.6 % (1.0-3.0); HEMATOCRIT 49.7 % (40.0-54.0); HEMOGLOBIN 16.3 g/dL (14.0-18.0); LYMPHOCYTES PERCENT AUTO 10.7 % (20.5-50.1); MEAN CORPUSCULAR HEMOGLOBIN 33.1 pg (27.0-34.0); MEAN CORPUSCULAR HGB CONC 32.8 g/dL (33.0-35.0); MONOCYTES PERCENT AUTO 7.5 % (2-8); NEUTROPHILS PERCENT AUTO 80.7 % (42.2-75.2); PLATELET COUNT,PLT 163 10^3/uL (150-450); RED BLOOD CELL COUNT 4.92 10^6/uL (4.6-6.2); WHITE BLOOD CELL COUNT,WBC 9.4 10^3/uL (5.0-10.0)
[2024-04-13] MEDS: Ondansetron 4 MG/2 ML SDV IVPUSH ONE (04:46)
[2024-04-13] MEDS: Lactated Ringers 1,000 ML IV ONE (04:50)
[2024-04-13 04:53] LABS: A/G RATIO 0.8; ALANINE AMINOTRANSFERASE,ALT 59 U/L (16-63); ALBUMIN 3.8 g/dL (3.4-5.0); ALKALINE PHOSPHATASE 87 U/L (46-116); ANION GAP 11.2 mEq/L (7-13); ASPARTATE AMNIOTRANSFERASE,AST 66 U/L (15-37); BILIRUBIN TOTAL 1.5 mg/dL (0.2-1.0); BLOOD UREA NITROGEN,BUN 7 mg/dL (7-18); BUN/CREATININE RATIO 8.2 (No establ ref range); CALCIUM 9.7 mg/dL (8.5-10.1); CARBON DIOXIDE,CO2 29 mmol/L (21-32); CHLORIDE,CL 99 mmol/L (98-107); CREATININE 0.85 mg/dL (0.70-1.30); EST CRCL DRUG DOSING (CG) 113.32 mL/min; GLUCOSE RANDOM 165 mg/dL (70-99); LIPASE 29 U/L (16-77); MAGNESIUM 1.5 mg/dL (1.8-2.4); POTASSIUM,K 4.2 mmol/L (3.5-5.1); PROTEIN TOTAL,TP 8.5 g/dL (6.4-8.2); SODIUM,NA 135 mmol/L (136-145)
[2024-04-13 04:54] LABS: ESTIMATED GFR 109 mL/min (>=60); ETHANOL BLOOD MEDICAL < 3 mg/dL (0)
[2024-04-13] MEDS: Iopamidol 612 MG/ML 100 ML Bottle IVPUSH ONE (05:21)
[2024-04-13] MEDS: Morphine 2 MG/ML SYRINGE IVPUSH ONE ×2 (05:42→07:21)
[2024-04-13] MEDS: Magnesium Sulfate/Water Premix 2 GM in Premix Bag 1 BAG IV ONE ×2 (05:42→08:28)
[2024-04-13 06:12] LABS: APPEARANCE,URINE CLEAR (CLEAR); BILIRUBIN,URINE NEGATIVE (NEGATIVE); COLOR,URINE YELLOW (YELLOW); GLUCOSE,URINE NEGATIVE (NEGATIVE); KETONES,URINE NEGATIVE (NEGATIVE); LEUKOCYTE ESTERASE,URINE NEGATIVE (NEGATIVE); NITRITE,URINE NEGATIVE (NEGATIVE); OCCULT BLOOD,URINE NEGATIVE (NEGATIVE); PH,URINE 7.5 (5.0-9.0); PROTEIN,URINE NEGATIVE (NEGATIVE)
[2024-04-13 06:15] LABS: AMPHETAMINES,URINE NEGATIVE (NEGATIVE); BARBITURATES,URINE NEGATIVE (NEGATIVE); BENZODIAZEPINE,URINE NEGATIVE (NEGATIVE); MDMA (ECSTASY), URINE NEGATIVE (NEGATIVE); METHADONE,URINE NEGATIVE (NEGATIVE); METHAMPHETAMINES,URINE NEGATIVE (NEGATIVE); OPIATES,URINE NEGATIVE (NEGATIVE); OXYCODONE,URINE NEGATIVE (NEGATIVE); PHENCYCLIDINE,URINE NEGATIVE (NEGATIVE); TCA,URINE NEGATIVE (NEGATIVE)
[2024-04-13] MEDS: cefTRIAXone 2 GM Vial IVPUSH ONE (06:36)
[2024-04-13] MEDS: metroNIDAZOLE/Normal Saline 500 MG in Premix Bag 1 BAG IV ONE (06:50)
[2024-04-13] MEDS ORDERED: Morphine 2 MG/ML SYRINGE IVPUSH PRN (08:55)
[2024-04-13] MEDS ORDERED: Ondansetron 4 MG/2 ML SDV IVPUSH PRN (08:55)
[2024-04-13] MEDS ORDERED: Albuterol/Ipratropium 3.0-0.5 MG/3 ML Neb Soln NEB PRN (08:55)
[2024-04-13] MEDS ORDERED: Naloxone 2 MG/2 ML Syringe IVPUSH PRN (08:55)
[2024-04-13] MEDS ORDERED: Loperamide 2 MG Cap PO PRN (09:00)
[2024-04-13] MEDS ORDERED: hydrALAZINE 20 MG/ML SDV IVPUSH PRN (09:01)
[2024-04-13] MEDS ORDERED: Metoprolol Tartrate 5 MG/5 ML SDV IVPUSH PRN (09:01)
[2024-04-13 09:30] LABS: HEMOGLOBIN A1C 5.4 % (<5.7)
[2024-04-13] MEDS: Scopalamine 1mg/3day Transdermal Patch TOP ONE (10:02)
[2024-04-13] MEDS: oxyCODONE ER 10 MG TAB.ER PO ONE (10:02)
[2024-04-13] MEDS: oxyCODONE ER 20 MG TAB.ER PO ONE (10:07)
[2024-04-13] MEDS: fentaNYL 25 MCG/HR Transdermal Patch TRDERM ONE (10:31)
[2024-04-13] MEDS: Pantoprazole 40 MG Vial IVPUSH ONE (12:08)
[2024-04-13] MEDS: Dextrose 5%-0.9% NaCl 1,000 ML IV SCH (12:08)
[2024-04-13] MEDS: fentaNYL 12 MCG/HR Transdermal Patch TRDERM SCH (12:19)
[2024-04-13] MEDS: Sucralfate Suspension 1 GM/10 ML Cup PO SCH (14:28)
[2024-04-13] MEDS: Acetaminophen 325 MG Tab PO PRN (14:30)
[2024-04-13] MEDS: oxyCODONE ER 20 MG TAB.ER PO SCH (16:29)
[2024-04-13] MEDS: oxyCODONE ER 10 MG TAB.ER PO SCH (20:12)
[2024-04-13] MEDS: Melatonin 3 MG Tab PO PRN (20:12)
[2024-04-13] MEDS: Temazepam 15 MG Cap PO PRN (20:12)
[2024-04-14] MEDS: Pantoprazole 40 MG Tab.CR PO SCH (05:06)
[2024-04-14 06:15] LABS: BASOPHILS PERCENT AUTO 0.5 % (0.0-1.0); EOSINOPHILS PERCENT AUTO 2.1 % (1.0-3.0); HEMATOCRIT 50.8 % (40.0-54.0); HEMOGLOBIN 16.5 g/dL (14.0-18.0); LYMPHOCYTES PERCENT AUTO 13.2 % (20.5-50.1); MEAN CORPUSCULAR HEMOGLOBIN 33.3 pg (27.0-34.0); MEAN CORPUSCULAR HGB CONC 32.5 g/dL (33.0-35.0); MEAN CORPUSCULAR VOLUME 102.6 fL (80-100); MONOCYTES PERCENT AUTO 11.1 % (2-8); NEUTROPHILS PERCENT AUTO 73.1 % (42.2-75.2); PLATELET COUNT,PLT 148 10^3/uL (150-450); RED BLOOD CELL COUNT 4.95 10^6/uL (4.6-6.2); WHITE BLOOD CELL COUNT,WBC 9.2 10^3/uL (5.0-10.0)
[2024-04-14 06:47] LABS: ALBUMIN 2.9 g/dL (3.4-5.0); BILIRUBIN TOTAL 1.9 mg/dL (0.2-1.0); BUN/CREATININE RATIO 5.4 (No establ ref range); C-REACTIVE PROTEIN 9.9 ng/dL (<=0.50); CALCIUM 9.4 mg/dL (8.5-10.1); CREATININE 0.93 mg/dL (0.70-1.30); EST CRCL DRUG DOSING (CG) 110.1 mL/min; MAGNESIUM 1.8 mg/dL (1.8-2.4); PROTEIN TOTAL,TP 7.4 g/dL (6.4-8.2)
[2024-04-14 06:50] LABS: A/G RATIO 0.64
[2024-04-14 16:40] VITALS: BP 102/55; PULSE 84
[2024-04-14 17:51] LABS: APPEARANCE,URINE CLEAR (CLEAR); BILIRUBIN,URINE NEGATIVE (NEGATIVE); COLOR,URINE YELLOW (YELLOW); GLUCOSE,URINE NEGATIVE (NEGATIVE); KETONES,URINE NEGATIVE (NEGATIVE); LEUKOCYTE ESTERASE,URINE NEGATIVE (NEGATIVE); NITRITE,URINE NEGATIVE (NEGATIVE); OCCULT BLOOD,URINE TRACE-INTACT (NEGATIVE); PROTEIN,URINE NEGATIVE (NEGATIVE); UROBILINOGEN,URINE 0.2 mg/dL (0.2-1.0)
[2024-04-14 18:05] LABS: BACTERIA,URINE FEW /HPF (0-FEW/HPF); EPITHELIAL CELLS,URINE FEW /HPF (NOT SEEN); MUCUS,URINE MODERATE /LPF (NOT SEEN); WBC,URINE 0-5 /HPF (0-5/HPF)
[2024-04-16] MEDS ORDERED: REMOVE DURAGESIC TRDERM ONE (09:15)
== END 2024-04-14 18:57 | disposition home or self-care (01) | DRG 445 ==
LOC: DL.ED 04:16 → DL.MS 07:46
PROVIDERS: ADMIT Internal Medicine; ATTEND Internal Medicine
DX: K82.9 Disease of gallbladder, unspecified (principal); R10.11 Right upper quadrant pain; K80.20 Calculus of gallbladder without cholecystitis without obstruction; E27.1 Primary adrenocortical insufficiency; E87.1 Hypo-osmolality and hyponatremia; F10.20 Alcohol dependence, uncomplicated; E83.42 Hypomagnesemia; G80.9 Cerebral palsy, unspecified; E80.6 Other disorders of bilirubin metabolism; G40.909 Epilepsy, unspecified, not intractable, without status epilepticus; R73.9 Hyperglycemia, unspecified; Z79.899 Other long term (current) drug therapy; Z90.49 Acquired absence of other specified parts of digestive tract; Z88.0 Allergy status to penicillin; Z88.8 Allergy status to other drugs, medicaments and biological substances
CPT/HCPCS: 36415; 74177; 80053; 80305-QW; 80307; 81001; 81003; 82140; 83036; 83605; 83690; 83735; 85025; 86140; 96361; 96365; 96367; 96375; 96376; 99284; 99285-25; A9270-GY; J0696; J1836; J2270; J2405; J2470; J3475; J7042; J7120; Q9967

== ENCOUNTER 2024-08-17 20:08 | Emergency (ER) | payer MEDICAID ==
[2024-08-17 21:46] VITALS: BP 108/68; PULSE 70
== END 2024-08-17 21:35 | disposition home or self-care (01) ==
LOC: DL.ED 20:08
DX: M25.551 Pain in right hip (principal); Z88.0 Allergy status to penicillin; Z88.8 Allergy status to other drugs, medicaments and biological substances; Z79.899 Other long term (current) drug therapy; Z90.49 Acquired absence of other specified parts of digestive tract; W22.8XXA Striking against or struck by other objects, initial encounter
CPT/HCPCS: 99283

== ENCOUNTER 2024-10-09 03:15 | Emergency (ER) | payer MEDICAID ==
[2024-10-09] MEDS: Diphtheria,Pertussis(Acell),Tetanus Vaccine 0.5 ML Syringe IM ONE (03:57)
[2024-10-09] MEDS: cefTRIAXone 1 GM, Lidocaine 1% 2.1 ML IM ONE (04:00)
[2024-10-09] MEDS: Bacitracin Oint 1 GM U/D Packet TOP ONE (04:59)
[2024-10-09 05:18] VITALS: BP 136/74; PULSE 75
== END 2024-10-09 05:03 | disposition home or self-care (01) ==
LOC: DL.ED 03:15
DX: L03.115 Cellulitis of right lower limb (principal); S83.8X1A Sprain of other specified parts of right knee, initial encounter; S73.101A Unspecified sprain of right hip, initial encounter; Z88.0 Allergy status to penicillin; Z88.8 Allergy status to other drugs, medicaments and biological substances; Z79.899 Other long term (current) drug therapy; V17.0XXA Pedal cycle driver injured in collision with fixed or stationary object in nontraffic accident, initial encounter; Y93.55 Activity, bike riding
CPT/HCPCS: 73502; 73562; 87070; 87077; 87186; 87205; 90471; 90715; 96372; 99283; 99284; A9270; J0696; J2003

== ENCOUNTER 2024-12-13 20:48 | Emergency (ER) | payer MEDICAID ==
[2024-12-13] MEDS ORDERED: Sodium Chloride 0.9% 10 ML Syringe FLUSH PRN (21:03)
[2024-12-13] MEDS: MVI, Adult with Vitamin K 10 ML, Folic Acid 1 MG, Thiamine 100 MG in Lactated Ringers 1... IV ONE (21:52)
[2024-12-13 23:05] LABS: AMPHETAMINES,URINE NEGATIVE (NEGATIVE); BARBITURATES,URINE NEGATIVE (NEGATIVE); MDMA (ECSTASY), URINE NEGATIVE (NEGATIVE); METHAMPHETAMINES,URINE POSITIVE (NEGATIVE); OPIATES,URINE NEGATIVE (NEGATIVE); OXYCODONE,URINE NEGATIVE (NEGATIVE); PHENCYCLIDINE,URINE NEGATIVE (NEGATIVE); TCA,URINE NEGATIVE (NEGATIVE)
[2024-12-14 02:30] VITALS: PULSE 80
[2024-12-14 02:32] VITALS: BP 123/75
== END 2024-12-14 01:35 | disposition left against medical advice (07) ==
LOC: DL.ED 20:48
DX: F10.121 Alcohol abuse with intoxication delirium (principal); F15.10 Other stimulant abuse, uncomplicated; Z88.0 Allergy status to penicillin; Z88.8 Allergy status to other drugs, medicaments and biological substances; Z79.899 Other long term (current) drug therapy; Z90.49 Acquired absence of other specified parts of digestive tract
CPT/HCPCS: 36415; 80305; 80307; 96361; 96365; 99284; J1808; J3411; J7030; J7120; J3490

== ENCOUNTER 2025-01-10 23:21 | Emergency (ER) | payer MEDICAID ==
[2025-01-10 23:24] VITALS: BP 135/93; PULSE 72
[2025-01-10] MEDS ORDERED: Sodium Chloride 0.9% 10 ML Syringe FLUSH PRN (23:54)
[2025-01-11 00:45] LABS: BASOPHILS PERCENT AUTO 1.7 % (0.0-1.0); EOSINOPHILS PERCENT AUTO 7.3 % (1.0-3.0); LYMPHOCYTES PERCENT AUTO 37.1 % (20.5-50.1); MONOCYTES PERCENT AUTO 13.1 % (2-8); NEUTROPHILS PERCENT AUTO 40.8 % (42.2-75.2); PLATELET COUNT,PLT 189 10^3/uL (150-450); RED BLOOD CELL COUNT 4.31 10^6/uL (4.6-6.2); WHITE BLOOD CELL COUNT,WBC 4.8 10^3/uL (5.0-10.0)
[2025-01-11 00:54] LABS: A/G RATIO 0.9; ALANINE AMINOTRANSFERASE,ALT 57.0 U/L (16-63); ASPARTATE AMNIOTRANSFERASE,AST 35.0 U/L (15-37); BILIRUBIN TOTAL 0.4 mg/dL (0.2-1.0); BLOOD UREA NITROGEN,BUN 8.0 mg/dL (7-18); CARBON DIOXIDE,CO2 30.0 mmol/L (21-32); CHLORIDE,CL 106.0 mmol/L (98-107); CREATININE 0.57 mg/dL (0.70-1.30); EST CRCL DRUG DOSING (CG) 177.74 mL/min; ETHANOL BLOOD MEDICAL 263.0 mg/dL (0); GLUCOSE RANDOM 105.0 mg/dL (70-99); PROTEIN TOTAL,TP 8.0 g/dL (6.4-8.2); SODIUM,NA 143.0 mmol/L (136-145)
[2025-01-11 00:55] LABS: ESTIMATED GFR 122.0 mL/min (>=60)
[2025-01-11 00:56] LABS: POTASSIUM,K 4.0 mmol/L (3.5-5.1)
[2025-01-11] MEDS: Ketorolac 30 MG/ML SDV IVPUSH ONE (01:46)
== END 2025-01-11 01:53 | disposition home or self-care (01) ==
LOC: DL.ED 23:21
DX: S70.01XA Contusion of right hip, initial encounter (principal); F17.210 Nicotine dependence, cigarettes, uncomplicated; Z88.0 Allergy status to penicillin; Z79.899 Other long term (current) drug therapy; X50.0XXA Overexertion from strenuous movement or load, initial encounter; Y93.89 Activity, other specified
CPT/HCPCS: 36415; 73502; 80053; 80307; 83735; 85025; 96374; 99284; J1885

== ENCOUNTER 2025-01-15 11:35 | Emergency (ER) | payer MEDICAID ==
[2025-01-15 11:27] VITALS: BP 112/78
[2025-01-15 11:31] VITALS: PULSE 68
[2025-01-15] MEDS: Ketorolac 30 MG/ML SDV IM ONE (11:36)
== END 2025-01-15 11:50 | disposition home or self-care (01) ==
LOC: DL.ED 11:35
DX: M24.271 Disorder of ligament, right ankle (principal); Z88.0 Allergy status to penicillin; Z88.8 Allergy status to other drugs, medicaments and biological substances; Z79.899 Other long term (current) drug therapy; Z90.49 Acquired absence of other specified parts of digestive tract
CPT/HCPCS: 96372; 99283; J1885